=== PATIENT | female | born 1960 | race African-American/Black ===

== ENCOUNTER 2017-03-18 10:13 | Outpatient (CLI) | payer BC, OTHER ==
[2017-03-18 11:38] LABS: ALT (SGPT) 34 U/L (8-55); AST (SGOT) 19 U/L (5-34); Albumin 4.1 g/dL (3.5-5.0); Alkaline Phosphatase 90 U/L (40-150); Anion Gap 15 mmol/L (10-20); BUN (Urea Nitrogen) 15 mg/dL (9.8-20.1); Bilirubin, Direct 0.3 mg/dL (0.1-0.3); Bilirubin, Total 0.7 mg/dL (0.2-1.2); Calc. Creatinine Clearance 0 mL/min (70-130); Calcium 9.3 mg/dL (7.8-10.44); Carbon Dioxide 23 mmol/L (22-29); Cardiac Risk 2.6 (Less than 4.5); Chloride 107 mmol/L (98-107); Cholesterol 240 mg/dl (< 200 Desired); Estimated GFR-MDRD Greater than 90; Glucose 105 mg/dL (70-105); HDL Cholesterol 92 mg/dL (>60 Neg Risk); LDL Cholesterol, Calculated 136 mg/dL; Potassium 3.7 mmol/L (3.5-5.1); Protein, Total 7.2 g/dL (6.0-8.3); Sodium 141 mmol/L (136-145); Triglycerides 62 mg/dL (Less than 150)
[2017-03-18 11:39] LABS: Eosinophils 2 % (0-10); Hemoglobin 13.4 g/dL (12.0-16.0); Lymphocytes 40 % (21-51); MDiff Complete? YES; Mean Corpuscular HGB CONC 31.6 g/dL (32.0-36.0); Mean Corpuscular Hemoglobin 24.7 pg (27.0-31.0); Mean Corpuscular Volume 78.1 fl (81.0-99.0); Mean Platelet Volume 7.2 fL (7.4-10.4); Monocytes 13 % (0-10); Neutrophil 45 % (42-75); PLT Morphology Comment Appears Adequate; Platelet Count 223 thou/uL (130-400); RBC Distribution Width 13.6 % (11.5-14.5); Red Blood Cell (RBC) Count 5.42 mill/uL (4.20-5.40); White Blood Cell (WBC) Count 3.7 thou/uL (4.8-10.8)
== END 2017-03-18 10:14 | disposition home or self-care (01) ==
LOC: MADLABBHPM 10:13
PROVIDERS: ATTEND Family Medicine
DX: I10 Essential (primary) hypertension (principal)
CPT/HCPCS: 36415; 80048; 80061; 80076; 84443; 85025

== ENCOUNTER 2019-06-17 09:26 | Emergency (ER) | payer OTHER | END 2019-06-17 10:58 | disposition home or self-care (01) | LOC: MADERS 09:26 | DX: J11.1 Influenza due to unidentified influenza virus with other respiratory manifestations (principal); I10 Essential (primary) hypertension; Z79.899 Other long term (current) drug therapy | CPT/HCPCS: J7620 ==

== ENCOUNTER 2019-07-31 12:43 | Outpatient (CLI) | payer OTHER ==
--- NOTE | 2019-07-31 13:21 | CT ---
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 There is a left articular pillar, left sedrick a and spinous process left of midline at T11, with the spinous process partially fused with the spinous process component right of midline from the hemivertebra. There is no left-sided T11 pedicle or left-sided vertebral body corpus. There are 12 right rib bearing vertebral bodies. There is incomplete closure of the posterior element s of T1, T2 and T3. No additional vertebral body segmentation anomaly is evident. Vertebral body heights are maintained. Scattered disc degenerative changes are seen. There is focal r ight convexity curvature about the lower thoracic spine centered at the pseudohemivertebra. No lytic or blastic lesions are seen. No significant bony canal or bony foraminal narrowing is apparent. 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
--- NOTE | 2019-07-31 14:03 | CT ---
LUMBAR SPINE CT WITHOUT CONTRAST: DATE: 07/31/2019. COMPARISON: None. HISTORY: Chronic pain. TECHNIQUE: Axial CT imaging obtained at 2.5 mm intervals from the lower thoracic region through the lower sacrum without contrast. Coronal and sagittal reformatted imaging obtained. FINDINGS: Evaluation for central canal and/or neural foraminal stenosis is limited on routine CT examination. Lumbar vertebral body height and alignment appears grossly unremarkable with no significant anterolis thesis or retrolisthesis. Vertebral body anomalies are noted at the lower thoracic spine. Findings appear to include a hemiver tebral body on the right at T11 with incomplete fusion of the posterior elements at the T10, T11, and T12 levels, better assessed on the thoracic spine MRI. T12-L1: No osseous cause of significant central canal or neural foraminal stenosis. Mild facet hype rtrophy on the right. L1-2: No osseous cause of significant central canal or neural foraminal stenosis. Mild right-sided facet hypertrophy. L2-3: Mild bilateral facet hypertrophy, left greater than right. No osseous cause of significant ce ntral canal or neural foraminal stenosis. L3-4: Bilateral facet hypertrophy. No osseous cause of significant central canal or neural foramina l stenosis. L4-5: There is bilateral facet hypertrophy with probable mild neural foraminal stenosis. No osseous cause of significant central canal stenosis. L5-S1: There is bilateral facet hypertrophy with probable mild bilateral neural foraminal stenosis. There is no osseous cause of significant central canal stenosis. No acute fracture or dislocation. No suspicious lytic or blastic bone lesion. IMPRESSION: No acute osseous abnormality. Vertebral body anomalies are noted within the lower thoracic spine, be tter assessed on the thoracic spine CT examination also performed 07/31/2019. POS: [id number]
== END 2019-07-31 12:44 | disposition home or self-care (01) ==
LOC: MADCT 12:43
PROVIDERS: ATTEND Neurological Surgery
DX: M54.6 Pain in thoracic spine (principal); Q76.49 Other congenital malformations of spine, not associated with scoliosis
CPT/HCPCS: 72128; 72131

== ENCOUNTER 2020-02-27 10:37 | Outpatient (CLI) | payer OTHER ==
--- NOTE | 2020-02-27 11:38 | RAD ---
BILATERAL HIPS 2 VIEWS EACH: Date: 02/27/2020 HISTORY: Bilateral hip pain. FINDINGS/IMPRESSION: Very mild degenerative and osteoarthrosis changes of both right and left hips. No evidence for acute fracture or dislocation involving either the right or left hip. POS: AH
== END 2020-02-27 10:38 | disposition home or self-care (01) ==
LOC: MADRAD 10:37
PROVIDERS: ATTEND Neurological Surgery
DX: M25.551 Pain in right hip (principal); M25.552 Pain in left hip; M16.0 Bilateral primary osteoarthritis of hip
CPT/HCPCS: 73521

== ENCOUNTER 2021-02-16 19:14 | Emergency (ER) | payer BC, OTHER ==
[2021-02-16 20:25] LABS: Bilirubin Negative (Negative); Blood, Urine Negative (Negative); Clarity Clear (Clear); Glucose, Urine (Dipstick) Negative (Negative); Ketone, Urine Negative (Negative); Leukocyte Negative (Negative); Nitrite Negative (Negative); Protein, Urine (Dipstick) Negative (Neg-Trace); Specific Gravity, Urine 1.025 (1.005-1.030); Urobilinogen 0.2 mg/dL (Less than 2)
[2021-02-16] MEDS ORDERED: Ketorolac Tromethamine 30 MG/ML VIAL ONE (21:06)
[2021-02-16] MEDS ORDERED: Ondansetron ODT 4 MG TAB ONE (21:06)
[2021-02-17 17:29] LABS: SARS-CoV-2 PCR by NAA Not Detected (NotDetected)
== END 2021-02-16 21:20 | disposition home or self-care (01) ==
LOC: MADERS 19:14
DX: M54.41 Lumbago with sciatica, right side (principal); Z20.822 Contact with and (suspected) exposure to COVID-19; I10 Essential (primary) hypertension
CPT/HCPCS: 81003; 96372; 99283; J1885; Q0162; U0003; U0005

== ENCOUNTER 2021-11-19 08:58 | Emergency (ER) | payer BC ==
[2021-11-19] MEDS ORDERED: Bacitracin 1 PK ONE (09:20)
== END 2021-11-19 09:29 | disposition home or self-care (01) ==
LOC: MADERS 08:58
DX: T63.301A Toxic effect of unspecified spider venom, accidental (unintentional), initial encounter (principal); I10 Essential (primary) hypertension; Z79.899 Other long term (current) drug therapy
CPT/HCPCS: 99282

== ENCOUNTER 2024-08-02 08:00 | Emergency (ER) | payer BC ==
[2024-08-02] MEDS ORDERED: Ibuprofen 600 MG TAB ONE (08:14)
== END 2024-08-02 08:49 | disposition home or self-care (01) ==
LOC: MADERS 08:00
DX: J06.9 Acute upper respiratory infection, unspecified (principal); I10 Essential (primary) hypertension; Z79.899 Other long term (current) drug therapy
CPT/HCPCS: 87081; 87400; 87426; 87430; 99283

== ENCOUNTER 2024-09-21 16:29 | Emergency (ER) | payer BC | END 2024-09-21 17:39 | disposition home or self-care (01) | LOC: MADERS 16:29 | DX: M25.511 Pain in right shoulder (principal); I10 Essential (primary) hypertension; E78.00 Pure hypercholesterolemia, unspecified; Z79.899 Other long term (current) drug therapy | CPT/HCPCS: 93005; 99283 ==